=== PATIENT | female | born 1970 | race Caucasian/White ===

== ENCOUNTER 2017-06-14 18:07 | Inpatient (IN) | payer BC, OTHER ==
[~2017-06-14] VITALS: Ht 157.5 cm; Wt 89.3 kg
--- NOTE | ~2017-06-14 | HC ---
[facility] [place] [address] CONSULTATION Name: RAMONA CONNELLY Room #: 207-P [facility] IN M.R.#: [id number] Admission: 06/14/17 Attend Phys: Daniel Gamez DO Discharge: Date of : 68 Report #: [id number] THIS REPORT FOR: //name// CC: Shaun Gamez DATE OF SERVICE: 06/15/2017 INDICATION: Chest pain. HISTORY OF PRESENT ILLNESS: This is a 47-year-old female with a history of diabetes mellitus, hypertension, and hyperlipidemia, presenting with chest pains. She presented to the ER at [facility] with complaints of chest pains. She was found to have an elevated creatinine level. She describes the chest pain as a discomfort in the substernal area, radiating up to the right shoulder area. It has been ongoing for the past several days. Yesterday, it lasted all day long. It seems to be partially reproducible with palpation over the area as well as stretching of the arms. There is no history of fever, nausea, diarrhea, or chills. PAST MEDICAL HISTORY: Diabetes mellitus, hypertension, hyperlipidemia, and peptic ulcer disease. ALLERGIES: ASPIRIN, MORPHINE, NIFEDIPINE, ERYTHROMYCIN, CETIRIZINE, BUTORPHANOL and PROMETHAZINE. MEDICATIONS: Include Toprol-XL 100 mg, Lipitor 20 mg, metformin, lisinopril/HCTZ, ibuprofen, and vitamin. SOCIAL HISTORY: Denies tobacco use. FAMILY HISTORY: Negative for premature CAD. REVIEW OF SYSTEMS: A full 10-point review of systems performed. Only the pertinent positives and negatives are described in the HPI. PHYSICAL EXAMINATION: VITAL SIGNS: Blood pressure is 100/60, heart rate is 80 beats per minute. GENERAL APPEARANCE: This is an overweight female, in no acute respiratory distress. HEAD AND EYES: Normocephalic. Sclerae are anicteric. ENT: Oral mucosa moist. NECK: Supple. LUNGS: Clear to auscultation. CARDIAC: Regular rate and rhythm, S1, S2 positive. [facility] [address] [place] [address] CONSULTATION Name: RAMONA CONNELLY Room #: [address] [place] [address] IN M.R.#: [id number] Admission: 06/14/17 Attend Phys: Daniel Gamez DO Discharge: Date of : 68 Report #: [id number] ABDOMEN: Soft, nontender. EXTREMITIES: No edema, no cyanosis. LABORATORY VALUES: White count , hemoglobin is 11.0. Sodium is 140, creatinine is 3.1. Troponin is 0.04 times 2 ECG reveals sinus rhythm, otherwise normal. ASSESSMENT AND PLAN: 1. Chest pain syndrome, the differential diagnosis includes ischemia, musculoskeletal, gastrointestinal, etc. It seems to be reproducible with deep palpation and stretching of the arms. It is unlikely to represent ischemia as she had the pain all day long yesterday and serial troponin levels are negative thus far. However, given her significant coronary artery disease risk factors, we will proceed with a noninvasive stress test. 2. Acute renal failure, as per nephrology. 3. , continue with medications, hold AURORA inhibitor and diuretic in view of acute renal insufficiency. 4. Hypercholesterolemia, continue with statin medication. 5. Diabetes mellitus, hold metformin, check fingersticks. <ELECTRONICALLY SIGNED> By: Jad Polanco MD 06/15/17 1541 [id number] Jad Polanco MD /nt
--- NOTE | ~2017-06-14 | EKG ---
[address] [address] ELECTROCARDIOGRAM REPORT Name: RAMONA CONNELLY Room #: 207- ADM IN M.R.#: [id number] Admission: 06/14/17 Attend Phys: Daniel Gamez DO Discharge: Date of : 68 Report #: [id number] THIS REPORT FOR: //name// [facility] Test Date: 2017-06-15 Test Time: 06:01:52 Pat Name: RAMONA CONNELLY Department: Room: 207 Gender: F Medical Consultant: VAIBHAV : 1970 Requested By: Ethel Trent Order Number: [id number] MD: Ganga Hanks Measurements Intervals [place] Rate: 80 P: 23 MA: 184 QRS: 10 QRSD: 71 T: 21 QT: 372 QTc: 430 Interpretive Statements Sinus rhythm Low voltage, precordial leads Artifact in lead(s) II,III,aVR,aVL,aVF,V1,V2,V3,V4,V5,V6 Compared to ECG 04/15/2014 07:16:10 No significant changes Electronically Signed On 06-15-2017 14:00:03 CDT by Ganga Hanks [email or web address] <ELECTRONICALLY SIGNED> By: Ganga Hanks MD 06/15/17 1400 0 06 Ganga Hanks MD /EPI
--- NOTE | ~2017-06-14 | HC ---
[facility] [place] [address] CONSULTATION Name: RAMONA CONNELLY Room #: 207-P ADM IN M.R.#: [id number] Admission: 06/14/17 Attend Phys: Daniel Gamez DO Discharge: Date of : 68 Report #: [id number] THIS REPORT FOR: //name// CC: Shaun Gamez REASON FOR CONSULTATION: Acute kidney injury. REASON FOR PRESENTATION: Transferred from [facility] for an acute kidney injury. HISTORY OF PRESENT ILLNESS: A 47-year-old with past medical history of hypertension and hyperlipidemia along with diabetes mellitus. She has not been feeling well in the last few days. She reported occasional dizziness. This was associated with some chest discomfort. She described it as pressure like, radiating to the back, associated with some nausea and no vomiting. No urinary symptoms. She has been taking her lisinopril, metformin and on top of that, ibuprofen. When she had those symptoms, she measured her blood pressure and her blood pressure was extremely low. She visited with [facility] and was found to have a creatinine of 3.6. She tells me that she previously had toxemia with her child and had an acute kidney injury, but she does not recall if she completely recovered or not. I am being consulted to manage her acute kidney injury. PAST MEDICAL HISTORY: 1. Hypertension. 2. Diabetes mellitus. 3. Asthma. 4. Cholecystectomy. 5. Appendectomy. 6. Tonsillectomy. 7. Tubal ligation. 8. Right knee surgery. 9. Total hysterectomy. 10. Renal biopsy. MEDICATIONS: 1. Ranitidine. 2. Metoprolol. 3. Atorvastatin. 4. Lisinopril/hydrochlorothiazide. 5. Ibuprofen. 6. Vitamin D3. ALLERGIES: NUMEROUS INCLUDING ASPIRIN, MORPHINE, NIFEDIPINE, CETIRIZINE, ERYTHROMYCIN AND PROMETHAZINE. [facility] [address] [place] [address] CONSULTATION Name: RAMONA CONNELLY Room #: 207-P [facility] IN ..#: [id number] Admission: 06/14/17 Attend Phys: Daniel Gamez DO Discharge: Date of : 68 Report #: [id number] SOCIAL HISTORY: Remote history of tobacco abuse in the past. No drug or alcohol abuse. REVIEW OF SYSTEMS: GENERAL: No fever or chills, but significant for weakness. CARDIOVASCULAR: Significant for chest pain, but no palpitation. PULMONARY: No cough or hemoptysis. GASTROINTESTINAL: Decreased p.o. intake, but no vomiting. However, she did have nausea. SKIN: No rashes or ulcerations. FAMILY HISTORY: Significant for coronary artery disease. PHYSICAL EXAMINATION: GENERAL: She is alert, oriented, in no apparent distress. VITAL SIGNS: Blood pressure is 89/49. HEAD AND NECK: No jugular venous distention, no bruit, no thyromegaly. CHEST: Clear to auscultation bilaterally. CARDIOVASCULAR: Regular, with no rub. ABDOMEN: Soft, nontender with no hepatosplenomegaly. LOWER EXTREMITIES: No edema, with intact peripheral pulses. LABORATORY DATA: Laboratory values reviewed. Creatinine is 3.1, carbon dioxide is 20 and BUN is 59. ASSESSMENT, IMPRESSION AND PLAN: 1. Acute kidney injury. 2. Hypotension. 3. Diabetes mellitus. 4. Her acute kidney injury is related to hypertension. 5. Hold all of her antihypertensive medications. 6. Obtain acute kidney injury workup and evaluate for proteinuria. 7. Avoid nephrotoxins. 8. Watch electrolytes. 9. Chest pain workup. 10. Not sure where her baseline is and where her creatinine is going to level. We will continue to monitor. <ELECTRONICALLY SIGNED> By: Zulma Abbasi MD 06/18/17 0636 [id number] Zulma Abbasi MD /nt
--- NOTE | ~2017-06-14 | 2DMMODE ---
[facility] [address] [place] [address] 2 D/M-MODE ECHOCARDIOGRAM Name: RAMONA CONNELLY Room #: 207-P ADM IN M.R.#: [id number] Admission: 06/14/17 Attend Phys: Daniel Gamez, Discharge: Date of : 68 Date of Service: 06/15/17 1004 Report #: [id number] THIS REPORT FOR: //name// APPROVED REPORT Study performed: 06/15/2017 08:57:31 EXAM: Comprehensive 2D, Doppler, and color-flow Echocardiogram Patient Location: Echo lab Room #: [facility] Status: routine BSA: 1.89 HR: 79 bpm BP: 103/57 mmHg Other Information Study Quality: Adequate Indications Diabetes Dyspnea Chest Pain Hypertension/HDD 2D Dimensions RVDd: 30.62 mm LVEF(%): 60.32 (>50%) IVSd: 8.53 (7-11mm) LVOT Diam: 19.85 (18-24mm) LVDd: 39.64 mm PWd: 9.04 (7-11mm) Ascending Ao: 29.43 (22-36mm) LVDs: 27.07 (25-40mm) Aortic Root: 27.81 mm IVC: 18.00 mm Del Rosario's LVEF: 60.32 % Volumes Left Atrial Volume (Systole) Single Plane 4CH: 37.91 mL Single Plane 2CH: 29.30 mL LA ESV Index: 20.00 mL/m2 Aortic Valve AoV Peak Reyes.: 1.53 m/s AO Peak Gr.: 9.34 mmHg LVOT Max P.29 mmHg LVOT Max V: 1.04 m/s BETHEL Vmax: 2.10 cm2 Mitral Valve [facility] [place] [address] [place] [address] 2 D/M-MODE ECHOCARDIOGRAM Name: RAMONA CONNELLY Room #: 207-P [facility] IN .R.#: [id number] Admission: 06/14/17 Attend Phys: Daniel Gamez, Discharge: Date of : 68 Date of Service: 06/15/17 1004 Report #: [id number] E/A Ratio: 1.2 MV Decel. Time: 190.76 ms MV E Max Reyes.: 0.78 m/s MV A Reyes.: 0.65 m/s MV PHT: 55.32 ms IVRT: 96.89 ms Pulmonary Valve PV Peak Reyes.: 0.98 m/s PV Peak Gr.: 3.85 mmHg Pulmonary Vein P Vein S: 0.61 m/s P Vein A: 0.35 m/s P Vein D: 0.46 m/s P Vein A Dur.: 120.0 msec P Vein S/D Ratio: 1.33 Left Ventricle The left ventricle is normal size. There is normal left ventricular wall thickness. The left ventricular systolic function is normal. The left ventricular ejection fraction is within the normal range. LVEF is 55-60%. The left ventricular diastolic function is normal. Right Ventricle The right ventricle is normal size. The right ventricular systolic function is normal. Atria The left atrium size is normal. The right atrium size is normal. Aortic Valve The aortic valve is normal in structure. No aortic regurgitation is present. There is no aortic valvular stenosis. Mitral Valve The mitral valve is normal in structure. There is no mitral valve regurgitation noted. No evidence of mitral valve stenosis. Tricuspid Valve The tricuspid valve is normal in structure. There is no tricuspid valve regurgitation noted. Pulmonic Valve The pulmonary valve is normal in structure. There is no pulmonic valvular regurgitation. [employer] [address] [address] 2 D/M-MODE ECHOCARDIOGRAM Name: RAMONA CONNELLY Room #: 207-P [facility] IN M.R.#: [id number] Admission: 06/14/17 Attend Phys: Daniel Gamez, Discharge: Date of : 68 Date of Service: 06/15/17 1004 Report #: [id number] The aortic root is normal in size. IVC is normal in size and collapses >50% with inspiration. Pericardium There is no pericardial effusion. <Conclusion> The left ventricle is normal size. There is normal left ventricular wall thickness. The left ventricular systolic function is normal. The right ventricle is normal size. The left atrium size is normal. The right atrium size is normal. There is no aortic valvular stenosis. There is no mitral valve regurgitation noted. There is no tricuspid valve regurgitation noted. <ELECTRONICALLY SIGNED> By: Jad Polanco MD 06/15/17 1004 1004 Jad Polanco MD /INF
[~2017-06-14 18:07] MED LIST: CHANTIX1 MG PO; CLARITIN10 MG PO; GLUCOPHAGE1000 MG PO; HYDROCHLOROTHIA25 M2 PO; LIPITOR 20 MG T20 M1 PO; LISINOPRIL20 MG PO; METFORMIN HCL500 MG PO; MOBIC15 MG PO; TOPROL XL100 MG PO; ULTRACET TABLET1 TAB PO; VITAMIN D2000 UNIT PO; XANAX 0.5 MG0.5 MG PO; ZANTAC 150MG T150 MG PO; ZESTORETIC 20-1 EAC2 PO
[2017-06-14 19:38] VITALS: BP 117/66
[2017-06-14] MEDS ORDERED: IBUPROFEN200 M1 PO (19:49)
[2017-06-14] MEDS ORDERED: VITAMIN D2000 UNIT PO (19:53)
[2017-06-14] MEDS ORDERED: BYDUREON P2 MG/0.65 SQ (19:59)
[2017-06-15 00:20] VITALS: BP 92/49
[2017-06-15 03:57] VITALS: BP 89/49
[2017-06-15 04:25] LABS: HEMATOCRIT 31.8 % (37.0-47.0); MCH 29.8 pg (26.0-34.0); MCHC 34.7 g/dL (28.0-37.0); MCV 85.7 fL (80.0-100.0); RBC 3.71 mil/uL (4.20-5.00); RDW 13.2 % (10.5-14.5)
[2017-06-15 04:32] LABS: ANION GAP 11 mmol/L (7-16); BUN 59 mg/dL (7-18); CHLORIDE 109 mmol/L (98-107); CO2 20 mmol/L (21-32); CREATININE 3.1 mg/dL (0.6-1.0); GLUCOSE 97 mg/dL (74-106); POTASSIUM 4.5 mmol/L (3.5-5.1); SODIUM 140 mmol/L (136-145)
[2017-06-15 04:41] LABS: ALBUMIN 3.4 g/dL (3.4-5.0); SGOT 19 U/L (15-37); SGPT 21 U/L (30-65); TOTAL BILIRUBIN 0.3 mg/dL (<0.1-1.0); TOTAL PROTEIN 6.1 g/dL (6.4-8.2); TROPONIN-I < 0.04 ng/mL (<0.06)
[2017-06-15 07:57] VITALS: BP 103/57
[2017-06-15 16:10] VITALS: BP 106/57
[2017-06-15 17:54] LABS: URINE BILIRUBIN NEGATIVE (Negative); URINE BLOOD NEGATIVE (Negative); URINE CLARITY CLEAR; URINE COLOR YELLOW; URINE GLUCOSE-RANDOM* NEGATIVE (Negative); URINE KETONES NEGATIVE (Negative); URINE LEUKOCYTES NEGATIVE (Negative); URINE NITRITE NEGATIVE (Negative); URINE PROTEIN (DIPSTICK) NEGATIVE (Negative); URINE UROBILINOGEN 0.2 E.U./dl (0.2-1.0)
[2017-06-15 17:59] LABS: URINE CREATININE-RANDOM* 39.6 mg/dL; URINE PROTEIN-RANDOM* 7.5 mg/dL (<11.9)
[2017-06-15 19:45] VITALS: BP 114/67
[2017-06-16 05:22] VITALS: BP 106/71
[2017-06-16 06:38] LABS: ALBUMIN 3.3 g/dL (3.4-5.0); CALCIUM 8.9 mg/dL (8.5-10.1); PHOSPHORUS 4.3 mg/dL (2.5-4.9); POTASSIUM 4.7 mmol/L (3.5-5.1)
[2017-06-16 08:14] VITALS: BP 101/55
[2017-06-16 12:16] VITALS: BP 129/70
[2017-06-16 17:23] VITALS: BP 112/65
[2017-06-16 19:45] VITALS: BP 119/75
[2017-06-17 03:36] LABS: ALBUMIN 3.1 g/dL (3.4-5.0); CALCIUM 8.9 mg/dL (8.5-10.1); CREATININE 1.6 mg/dL (0.6-1.0); PHOSPHORUS 4.4 mg/dL (2.5-4.9); POTASSIUM 4.3 mmol/L (3.5-5.1)
[2017-06-17 04:45] VITALS: BP 106/66
[2017-06-17 07:20] VITALS: BP 110/69
[2017-06-17 11:25] VITALS: BP 120/75
[2017-06-17 16:30] VITALS: BP 119/67
[2017-06-17 19:32] VITALS: BP 120/69
[2017-06-18 03:44] VITALS: BP 111/59
[2017-06-18 03:53] LABS: CALCIUM 8.8 mg/dL (8.5-10.1); CREATININE 1.6 mg/dL (0.6-1.0); PHOSPHORUS 4.2 mg/dL (2.5-4.9); POTASSIUM 4.3 mmol/L (3.5-5.1)
[2017-06-18 05:44] LABS: HEMOGLOBIN 10.5 gm/dL (12.0-15.0); MCH 29.8 pg (26.0-34.0); MCHC 34.9 g/dL (28.0-37.0); MCV 85.5 fL (80.0-100.0); RBC 3.51 mil/uL (4.20-5.00); RDW 13.1 % (10.5-14.5); WBC 6.1 thou/uL (4.0-11.0)
[2017-06-18 08:00] VITALS: BP 126/76
[2017-06-18] MEDS ORDERED: FAMOTIDINE 10 M10 MG PO (09:48)
[2017-06-18 11:34] VITALS: BP 126/76
[2017-06-18 12:00] VITALS: BP 134/82
== END 2017-06-18 13:01 | disposition home or self-care (01) | DRG 684 ==
LOC: 2N 18:07 → ENTRNSPT 06-18 12:44 → EDTRNSPTSTS 06-18 12:47 → 2N 06-18 13:01
PROVIDERS: Hospitalist; Internal Medicine Nephrology; Nurse Practitioner Family
DX: N17.9 Acute kidney failure, unspecified (principal); I95.9 Hypotension, unspecified; E11.9 Type 2 diabetes mellitus without complications; J45.909 Unspecified asthma, uncomplicated; E78.5 Hyperlipidemia, unspecified; E78.00 Pure hypercholesterolemia, unspecified; J44.9 Chronic obstructive pulmonary disease, unspecified; K21.9 Gastro-esophageal reflux disease without esophagitis; K29.70 Gastritis, unspecified, without bleeding; I10 Essential (primary) hypertension; Z87.891 Personal history of nicotine dependence; Z90.49 Acquired absence of other specified parts of digestive tract; Z90.710 Acquired absence of both cervix and uterus; Z88.6 Allergy status to analgesic agent; Z88.1 Allergy status to other antibiotic agents; Z88.8 Allergy status to other drugs, medicaments and biological substances; Z87.11 Personal history of peptic ulcer disease; I25.2 Old myocardial infarction; Z82.49 Family history of ischemic heart disease and other diseases of the circulatory system; Z83.3 Family history of diabetes mellitus; Z79.1 Long term (current) use of non-steroidal anti-inflammatories (NSAID)
CPT/HCPCS: 10081